=== PATIENT | male | born 1960 | race Caucasian/White ===

== ENCOUNTER 2018-05-03 11:50 | Emergency (ER) | payer BC, OTHER ==
[2018-05-03] MEDS ORDERED: Adacel (T-DAP) 0.5 ML VIAL ONE (12:15)
[2018-05-03] MEDS ORDERED: Piperacillin/Tazobactam 4.5 GM VIAL ONE (12:41)
[2018-05-03] MEDS ORDERED: Sodium Chloride 0.9% 100 ML ONE (12:41)
[2018-05-03] MEDS ORDERED: Ketorolac Tromethamine 30 MG/ML VIAL ONE (12:41)
[2018-05-03] MEDS ORDERED: Bacitracin Zinc 1 Packet ONE (13:39)
== END 2018-05-03 13:55 | disposition home or self-care (01) ==
LOC: SCSER 11:50
DX: S61.552A Open bite of left wrist, initial encounter (principal); S61.532A Puncture wound without foreign body of left wrist, initial encounter; W54.0XXA Bitten by dog, initial encounter; Y99.0 Civilian activity done for income or pay; F17.220 Nicotine dependence, chewing tobacco, uncomplicated; Z23 Encounter for immunization
CPT/HCPCS: 90471; 90715; 96365; 96375; J1885; J2543; J7050